=== PATIENT | female | born 1995 | race Caucasian/White ===

== ENCOUNTER 2017-11-27 12:22 | Inpatient (IN) ==
[2017-11-27] MEDS ORDERED: Oxytocin 30 Units/500ml Premix 30 UNITS/500 ML BAG IV.SIG PRN (13:24)
[2017-11-27] MEDS ORDERED: Naloxone Inj 0.4 MG/ML Vial IV.PUSH PRN (13:37)
[2017-11-27] MEDS ORDERED: fentaNYL Citrate Inj 100 MCG/2 ML Ampul IV.PUSH PRN ×2 (13:37)
[2017-11-27] MEDS ORDERED: Citric Acid/Sodium Citrate Liq 30 ML UDC PO SCH (13:45)
[2017-11-27] MEDS ORDERED: Sodium Chlor 0.9% Inj 500 ML IV.SIG PRN (14:00)
[2017-11-27] MEDS ORDERED: Oxytocin 30 Units/500ml Premix 30 UNITS/500 ML BAG IV.SIG ONE (14:00)
[2017-11-27] MEDS ORDERED: Penicillin G Potassium Inj 5,000,000 UNIT in Sodium Chloride 0.9% Inj 100 ML IV.SIG ONE (14:00)
[2017-11-27] MEDS ORDERED: Sod Chloride 0.9% Inj 1,000 ML IV.CONT PRN (14:00)
[2017-11-27 14:06] LABS: Baso # (Auto) 0.1 th/mm3 (0.0-0.2); Baso % (Auto) 0.5 % (0.0-2.0); Eos # (Auto) 0.1 th/mm3 (0.0-0.4); Eos % (Auto) 0.5 % (0.0-4.0); Hemoglobin 9.3 gm/dL (11.6-15.3); Lymph % (Auto) 17.8 % (9.0-44.0); Mean Corpuscular HGB Conc 32.1 % (32.0-36.0); Mean Corpuscular Hemoglobin 24.8 pg (27.0-34.0); Mean Corpuscular Volume 77.2 fL (80.0-100.0); Mean Platelet Volume 8.1 fL (7.0-11.0); Mono # (Auto) 0.9 th/mm3 (0.0-0.9); Mono % (Auto) 7.9 % (0.0-8.0); Neut # (Auto) 8.1 th/mm3 (1.8-7.7); Neut % (Auto) 73.3 % (16.0-70.0); Platelet Count 192 th/mm3 (150-450); Red Blood Count 3.76 mil/mm3 (4.00-5.30); Red Cell Distribution Width 16.1 % (11.6-17.2)
[2017-11-27 14:58] LABS: Bilirubin,Urine Negative (Negative); Clarity,Urine Clear (Clear); Color,Urine Yellow (Yellw/Straw); Glucose,Urine (UA) Negative (Negative); Leukocyte Esterase,Urine Trace (Negative); Nitrite,Urine Negative (Negative); Specific Gravity,Urine 1.006 (1.002-1.035); Squamous Epithelial Cell,Urine <1 /hpf (0-5)
[2017-11-27 15:13] LABS: Amphetamine Urine With Conf Neg (Neg); Benzodiazepine Urine With Conf Neg (Neg)
[2017-11-27] MEDS: Penicillin G Potassium Inj 2,500,000 UNIT in Sodium Chlor 0.9% Inj 100 ML IV.SIG SCH ×2 (17:56→22:02)
[2017-11-27] MEDS ORDERED: fentaNYL 2MCG-Bupiv 0.125% Epi 150 ML EPIDURAL ONE (18:46)
[2017-11-27] MEDS ORDERED: Bupivacaine PF 0.25% Inj 10 ML Vial ONE (19:00)
[2017-11-27] MEDS ORDERED: Lidocaine PF 1% Inj 10 ML Amp ONE (19:01)
[2017-11-27] MEDS ORDERED: Lidocaaine 1.5%/Epinephrine 1:200,000 PF Inj 5 ML Amp ONE (19:01)
[2017-11-27] MEDS ORDERED: Lidocaine 1% Inj 50 ML Vial ONE (19:02)
[2017-11-27] MEDS ORDERED: fentaNYL 2MCG-Bupiv 0.125% Epi 150 ML EPIDURAL PRN (20:05)
[2017-11-27] MEDS ORDERED: fentaNYL Citrate Inj 100 MCG/2 ML Ampul EPIDURAL ONE (20:05)
[2017-11-28] MEDS ORDERED: Lidocaine 1% Inj 50 ML Vial ONE (00:12)
[2017-11-28] MEDS ORDERED: Naloxone Inj 0.4 MG/ML Vial IV.PUSH PRN (01:36)
[2017-11-28] MEDS ORDERED: Bisacodyl 10 MG Supp RECTAL PRN (01:36)
[2017-11-28] MEDS ORDERED: Witch Hazel 50%/Glyderin 12.5% 40 Pad Jar RECTAL PRN (01:36)
[2017-11-28] MEDS ORDERED: Oxytocin 30 Units/500ml Premix 30 UNITS/500 ML BAG IV.CONT PRN (01:36)
[2017-11-28] MEDS ORDERED: Benzocaine 20% Top Spray 60 ML Can TOPICAL PRN (01:36)
[2017-11-28] MEDS ORDERED: Zolpidem Tartrate 5 MG Tablet PO PRN (01:36)
--- NOTE | 2017-11-28 01:42 | P.OBDELI ---
Patient Started Active Labor: Yes Active Labor Start Date: 11/27/17 Medical Induction of Labor: No Artificial Rupture of Membrane: No Anesthesia: Epidural Episiotomy: none Vaginal Delivery: Normal Presentation: Occiput posterior Nuchal Cord: None Delayed Cord Clamping (45 sec): Yes Placenta: Spontaneous delivery, Intact, 3 vessel cord Laceration: 1 deg Repair: Vicryl running Estimated blood loss (mL): 250 : Male Infant Male A Delivery Date: 11/28/17 Weight: 3.487 kg score (1 min): 8 score (5 min): 9 Additional Information: Nice delivery of Nitesh. Everything went very well
[2017-11-28] MEDS: Acetaminophen 325 MG Tablet PO PRN ×3 (07:42→22:51)
[2017-11-28] MEDS: Senna/Docusate Sodium 8.6/50 MG Tablet PO SCH ×2 (10:24→22:51)
--- NOTE | 2017-11-28 14:34 | P.HPOB ---
History of Present Illness Primary Care Physician: Tamiko Alcocer MD Chief Complaint: regular contractions, SROM History of Present Illness: Had SROM at 1150 am. Some contractions Weeks Gestation:: 38 Para: 2 : 4 - Inpatient Certification I certify that the inpatient services were ordered in accordance with Medicare regulations governing the order. This includes certification that hospital inpatient services are reasonable and necessary and in the case of services not specified as inpatient-only under 42 CFR 419.22(n), that they are appropriately provided as inpatient services in accordance to with the 2-midnight benchmark under 43 CFR 412.3(e) Estimated Total Length of Stay (Days): 3 Plans for Post Hospital Care: Home Review of Systems Comments: All negative except for spotting and SROM. PMFSH - History History Provided By: Family Member ( at bedside) - Medical History Medical History: Medical History (Last Updated 11/28/17 @ 14:27 by Luis Gonzalez MD) Hypoglycemia Patient denies significant medical history - Surgical History Surgical History: Surgical History (Last Updated 11/28/17 @ 14:27 by Luis Gonzalez MD) History of cholecystectomy (Acute) - Family History Family History: Family History (Last Updated 11/28/17 @ 14:28 by Luis Gonzalez MD) Other Hypertension - Social History I have reviewed the patient's Social History: Yes - Tobacco History Second Hand Smoke Exposure: No Tobacco Use In Past 30 Days: No Smoking Status: Never smoker - Alcohol History How Often Do You Have a Drink Containing Alcohol: Never - Substance Use History Substance History: No History of Abuse - Travel History History of Recent Travel: No Recent Travel in the [place] Within the Last 8 Weeks: No Recent Travel Out of the Country Within the Last 8 Weeks: No Medications and Allergies Active Medications: Active Medications Acetaminophen (Tylenol) 650 mg PO Q4H PRN PRN Reason: PAIN SCALE 1 TO 2 Last Admin: 11/28/17 07:42 Dose: 650 mg Al Hydroxide/Mg Hydroxide (Milk Of Magnesia Liq) 30 ml PO Q12H PRN PRN Reason: Mild Constipation Benzocaine (Americaine 20% Top [place]) 1 spray TOPICAL Q4H PRN PRN Reason: For Perineum Discomfort Bisacodyl (Dulcolax Supp) 10 mg RECTAL DAILY PRN PRN Reason: SEVERE CONSITIPATION Diphtheria/Pertussis/Tetanus Vacc (Boostrix Vaccine Inj) 0.5 ml IM .ONCE ONE Stop: 11/28/17 16:01 Oxytocin (Pitocin 30 Units/Ns 500 Ml Premix) 30 units in 500 mls @ 2 mls/hr IV.SIG TITRATE PRN; Protocol PRN Reason: For induction of labor Last Admin: 11/27/17 14:07 Dose: 2 milliunit/min, 2 mls/hr Oxytocin (Pitocin 30 Units/Ns 500 Ml Premix) 30 units in 500 mls @ 100 mls/hr IV.CONT UNSCH PRN PRN Reason: Heavy bleeding Ibuprofen (Motrin) 800 mg PO Q8H PRN PRN Reason: For Cramping Last Admin: 11/28/17 10:24 Dose: 800 mg Lactulose (Lactulose Liq) 30 ml PO DAILY PRN PRN Reason: SEVERE CONSITIPATION Measles/Mumps/Rubella Vaccine Live (M-M-R Ii Vaccine Inj) 0.5 ml SQ .ONCE ONE Stop: 11/28/17 16:01 Naloxone HCl (Narcan Inj) 0.1 mg IV.PUSH Q2M PRN PRN Reason: for opiate reversal Ondansetron HCl (Zofran Odt) 4 mg PO Q6H PRN PRN Reason: NAUSEA OR VOMITING Senna/Docusate Sodium (Lora-Colace) 1 tab PO BID YURY Last Admin: 11/28/17 10:24 Dose: 1 tab Sennosides (Senokot) 17.2 mg PO Q12H PRN PRN Reason: Moderate Constipation Sodium Chloride (Ns Flush) 2 ml IV.FLUSH BID YURY Sodium Chloride (Ns Flush) 2 ml IV.FLUSH PRN PRN PRN Reason: FLUSH AFTER USING IV ACCESS Witch Dali/Glycerin (Tucks Pads) 1 applicatio RECTAL QID PRN PRN Reason: HEMORRHOIDS Zolpidem Tartrate (Ambien) 5 mg PO HS PRN PRN Reason: SLEEP Allergies Allergy/AdvReac Type Severity Reaction Status Date / Time No Known Allergies Unknown Uncoded 12/30/16 08:48 Home Medications Medication Instructions Recorded Confirmed Type PNV [id number] fumarate-FA 1 tab PO DAILY 11/28/17 11/28/17 History [] ranitidine HCl [Zantac] 1 tab PRN 11/28/17 11/28/17 History Exam Vital signs: Vital Signs 11/27/17 14:30 11/27/17 15:00 11/27/17 15:16 Temperature Pulse Rate 72 82 71 Respiratory Rate Blood Pressure 99/64 L 118/76 112/59 L 11/27/17 15:21 11/27/17 15:41 11/27/17 15:45 Temperature 98.0 F Pulse Rate 69 73 Respiratory Rate 18 Blood Pressure 92/56 L 100/74 11/27/17 16:00 11/27/17 16:45 11/27/17 17:01 Temperature Pulse Rate 116 H 136 H 89 Respiratory Rate Blood Pressure 109/73 103/75 101/68 11/27/17 17:15 11/27/17 17:31 11/27/17 17:46 Temperature 98.0 F Pulse Rate 83 72 79 Respiratory Rate 18 Blood Pressure 125/62 118/67 113/76 11/27/17 18:00 11/27/17 18:15 11/27/17 18:30 Temperature Pulse Rate 76 77 89 Respiratory Rate Blood Pressure 104/69 117/68 107/85 11/27/17 18:45 11/27/17 19:00 11/27/17 19:07 Temperature Pulse Rate 94 H 84 105 H Respiratory Rate Blood Pressure 119/78 116/61 127/79 11/27/17 19:11 11/27/17 19:15 11/27/17 19:26 Temperature Pulse Rate 114 H 110 H 79 Respiratory Rate 18 Blood Pressure 128/79 127/66 130/65 11/27/17 19:28 11/27/17 19:29 11/27/17 19:40 Temperature 98.7 F Pulse Rate 81 72 Respiratory Rate 18 Blood Pressure 118/62 110/64 11/27/17 20:12 11/27/17 20:15 11/27/17 20:20 Temperature Pulse Rate 85 77 86 Respiratory Rate 18 Blood Pressure 100/62 93/41 L 97/63 L 11/27/17 20:25 11/27/17 20:30 11/27/17 20:36 Temperature Pulse Rate 83 87 89 Respiratory Rate 18 Blood Pressure 94/52 L 11/27/17 20:50 11/27/17 21:00 11/27/17 21:02 Temperature Pulse Rate 81 93 H Respiratory Rate 18 Blood Pressure 95/55 L 111/78 11/27/17 21:10 11/27/17 21:15 11/27/17 21:20 Temperature Pulse Rate 70 67 70 Respiratory Rate Blood Pressure 105/71 11/27/17 21:30 11/27/17 21:32 11/27/17 21:35 Temperature 97.6 F Pulse Rate 71 74 Respiratory Rate 18 Blood Pressure 102/66 11/27/17 21:40 11/27/17 22:01 11/27/17 22:13 Temperature Pulse Rate 71 70 79 Respiratory Rate 18 Blood Pressure 100/67 99/45 L 11/27/17 22:15 11/27/17 22:25 11/27/17 22:30 Temperature Pulse Rate 74 74 80 Respiratory Rate Blood Pressure 90/54 L 93/53 L 11/27/17 22:40 11/27/17 22:43 11/27/17 22:45 Temperature Pulse Rate 72 88 Respiratory Rate 18 Blood Pressure 95/54 L 11/27/17 23:05 11/27/17 23:10 11/27/17 23:30 Temperature Pulse Rate 73 78 136 H Respiratory Rate 18 Blood Pressure 100/59 L 119/92 H 11/27/17 23:35 11/27/17 23:40 11/27/17 23:45 Temperature Pulse Rate 119 H 157 H 115 H Respiratory Rate Blood Pressure 11/27/17 23:50 11/28/17 00:05 11/28/17 00:07 Temperature Pulse Rate 118 H 133 H Respiratory Rate 20 Blood Pressure 124/73 11/28/17 00:10 11/28/17 00:15 11/28/17 00:25 Temperature Pulse Rate 142 H 171 H 118 H Respiratory Rate Blood Pressure 11/28/17 01:30 11/28/17 01:32 11/28/17 01:50 Temperature 98.7 F Pulse Rate 104 H 147 H Respiratory Rate 18 18 Blood Pressure 98/65 L 94/72 L 11/28/17 02:00 11/28/17 02:14 11/28/17 02:15 Temperature Pulse Rate 87 86 Respiratory Rate 18 Blood Pressure 107/93 H 107/64 11/28/17 02:30 11/28/17 02:32 11/28/17 03:02 Temperature Pulse Rate 101 H 88 Respiratory Rate 18 Blood Pressure 111/60 106/61 11/28/17 03:04 11/28/17 03:50 11/28/17 07:55 Temperature 98.6 F 98.3 F Pulse Rate 94 H 60 Respiratory Rate 18 18 20 Blood Pressure 105/57 L 102/66 Intake & Output 11/27/17 11/28/17 11/28/17 18:59 06:59 18:59 Intake Total 100 / 100 1999 / 1999 Balance 100 / 100 1999 Weight 79.199 kg Intake: IV 100 / 100 1999 / 1999 LR 1000 mL Inj 1,000 ML @ 125 1000 / 1000 mls/hr IV.CONT .Q8H YURY Rx#: [id number] LR 1000 mL Inj 1,000 ML @ 3000 1000 / 1000 mls/hr IV.SIG UNSCH PRN Rx#: [id number] Pfizerpen-G Inj 2,500,000 UNIT 100 / 100 In NS Inj 100 ML @ 200 mls/hr IV.SIG Q4H YURY Rx#:[id number] - Constitutional mild distress - Routine HEENT Exam Head: Present: normocephalic, atraumatic - Routine Neck Exam Present: supple - Routine Respiratory Exam Present: CTA bilaterally - Routine Cardiovascular Exam Present: RRR, S1, S2 - Routine Abdominal Exam Present: soft - Routine Extremities Exam Comments: NO CCE Results - Labs CBC & Chem 7: 11/27/17 13:05 Labs: Laboratory Results - last 24 hr 11/27/17 11/27/17 11/27/17 13:05 13:05 13:05 Urine Color Yellow Urine Clarity Clear Urine pH 7.0 Ur Specific [place] 1.006 Urine Protein Negative Urine Glucose (UA) Negative Urine Ketones Negative Urine Occult Blood Moderate H Urine Nitrate Negative Urine Bilirubin Negative Urine Urobilinogen Less than 2 Ur Leukocyte Esterase Trace H Urine RBC 3 Urine WBC 3 Ur Squamous Epith Cells <1 Micro UA Comment Culture not ind Ur Microscopic Review Not Reportable Urine Culture Comments Culture not ind Urine Opiates Screen Neg Ur Barbiturates Screen Neg Ur Amphetamine Screen Neg U Benzodiazepines Scrn Neg Urine Cocaine Screen Neg U Cannabinoids Screen Neg Blood Type O Positive Group B Strep: Positive Caprini VTE Risk Assessment Caprini VTE Risk Assessment: No/Low Risk (score <= 1) Caprini Risk Assessment Model: Point Value = 1 Point Value = 2 Point Value = 3 Point Value = 5 Age 41-60 Minor surgery BMI > 25 kg/m2 Swollen legs Varicose veins or History of unexplained or recurrent spontaneous Oral contraceptives or hormone replacement Sepsis (< 1 month) Serious lung disease, including pneumonia (< 1 month) Abnormal pulmonary function Acute myocardial infarction Congestive heart failure (< 1 month) History of inflammatory bowel disease Medical patient at bed rest Age 61-74 Arthroscopic surgery Major open surgery (> 45 min) Laparoscopic surgery (> 45 min) Malignancy Confined to bed (> 72 hours) Immobilizing plaster cast Central venous access Age >= 75 History of VTE Family history of VTE Factor V Leiden Prothrombin [id number] Lupus anticoagulant Anticardiolipin antibodies Elevated serum homocysteine Heparin-induced thrombocytopenia Other congenital or acquired thrombophilia Stroke (< 1 month) Elective arthroplasty Hip, pelvis, or leg fracture Acute spinal cord injury (< 1 month) Prophylaxis Regimen: Total Risk Factor Score Risk Level Prophylaxis Regimen 0-1 Low Early ambulation 2 Moderate Order ONE of the following: *Sequential Compression Device (SCD) *Heparin 5000 units SQ BID 3-4 Higher Order ONE of the following medications: *Heparin 5000 units SQ TID *Enoxaparin/Lovenox 40 mg SQ daily (WT < 150 kg, CrCl > 30 mL/min) *Enoxaparin/Lovenox 30 mg SQ daily (WT < 150 kg, CrCl > 10-29 mL/min) *Enoxaparin/Lovenox 30 mg SQ BID (WT < 150 kg, CrCl > 30 mL/min) AND/OR *Sequential Compression Device (SCD) 5 or more Highest Order ONE of the following medications: *Heparin 5000 units SQ TID (Preferred with Epidurals) *Enoxaparin/Lovenox 40 mg SQ daily (WT < 150 kg, CrCl > 30 mL/min) *Enoxaparin/Lovenox 30 mg SQ daily (WT < 150 kg, CrCl > 10-29 mL/min) *Enoxaparin/Lovenox 30 mg SQ BID (WT < 150 kg, CrCl > 30 mL/min) AND *Sequential Compression Device (SCD) Assessment and Plan - Plan 1. IUP AT 36+ weels 2. SROM expect a 3. Positive GBS Will treat in labor. Notify PEDS. 4. Significant anemia and will start fe in the near future.
--- NOTE | 2017-11-28 14:37 | P.PNOB ---
Subjective Post day: 0 Interval history: Doing well Pain is controlled Baby is doing well Eating well Objective Vital Signs/I&O: Vital Signs 11/27/17 15:00 11/27/17 15:16 11/27/17 15:21 Temperature 98.0 F Pulse Rate 82 71 Respiratory Rate 18 Blood Pressure 118/76 112/59 L 11/27/17 15:41 11/27/17 15:45 11/27/17 16:00 Temperature Pulse Rate 69 73 116 H Respiratory Rate Blood Pressure 92/56 L 100/74 109/73 11/27/17 16:45 11/27/17 17:01 11/27/17 17:15 Temperature 98.0 F Pulse Rate 136 H 89 83 Respiratory Rate 18 Blood Pressure 103/75 101/68 125/62 11/27/17 17:31 11/27/17 17:46 11/27/17 18:00 Temperature Pulse Rate 72 79 76 Respiratory Rate Blood Pressure 118/67 113/76 104/69 11/27/17 18:15 11/27/17 18:30 11/27/17 18:45 Temperature Pulse Rate 77 89 94 H Respiratory Rate Blood Pressure 117/68 107/85 119/78 11/27/17 19:00 11/27/17 19:07 11/27/17 19:11 Temperature Pulse Rate 84 105 H 114 H Respiratory Rate 18 Blood Pressure 116/61 127/79 128/79 11/27/17 19:15 11/27/17 19:26 11/27/17 19:28 Temperature Pulse Rate 110 H 79 81 Respiratory Rate Blood Pressure 127/66 130/65 118/62 11/27/17 19:29 11/27/17 19:40 11/27/17 20:12 Temperature 98.7 F Pulse Rate 72 85 Respiratory Rate 18 18 Blood Pressure 110/64 100/62 11/27/17 20:15 11/27/17 20:20 11/27/17 20:25 Temperature Pulse Rate 77 86 83 Respiratory Rate Blood Pressure 93/41 L 97/63 L 11/27/17 20:30 11/27/17 20:36 11/27/17 20:50 Temperature Pulse Rate 87 89 81 Respiratory Rate 18 Blood Pressure 94/52 L 95/55 L 11/27/17 21:00 11/27/17 21:02 11/27/17 21:10 Temperature Pulse Rate 93 H 70 Respiratory Rate 18 Blood Pressure 111/78 11/27/17 21:15 11/27/17 21:20 11/27/17 21:30 Temperature Pulse Rate 67 70 71 Respiratory Rate Blood Pressure 105/71 102/66 11/27/17 21:32 11/27/17 21:35 11/27/17 21:40 Temperature 97.6 F Pulse Rate 74 71 Respiratory Rate 18 Blood Pressure 100/67 11/27/17 22:01 11/27/17 22:13 11/27/17 22:15 Temperature Pulse Rate 70 79 74 Respiratory Rate 18 Blood Pressure 99/45 L 90/54 L 11/27/17 22:25 11/27/17 22:30 11/27/17 22:40 Temperature Pulse Rate 74 80 72 Respiratory Rate Blood Pressure 93/53 L 11/27/17 22:43 11/27/17 22:45 11/27/17 23:05 Temperature Pulse Rate 88 73 Respiratory Rate 18 18 Blood Pressure 95/54 L 100/59 L 11/27/17 23:10 11/27/17 23:30 11/27/17 23:35 Temperature Pulse Rate 78 136 H 119 H Respiratory Rate Blood Pressure 119/92 H 11/27/17 23:40 11/27/17 23:45 11/27/17 23:50 Temperature Pulse Rate 157 H 115 H 118 H Respiratory Rate Blood Pressure 11/28/17 00:05 11/28/17 00:07 11/28/17 00:10 Temperature Pulse Rate 133 H 142 H Respiratory Rate 20 Blood Pressure 124/73 11/28/17 00:15 11/28/17 00:25 11/28/17 01:30 Temperature Pulse Rate 171 H 118 H 104 H Respiratory Rate Blood Pressure 98/65 L 11/28/17 01:32 11/28/17 01:50 11/28/17 02:00 Temperature 98.7 F Pulse Rate 147 H 87 Respiratory Rate 18 18 Blood Pressure 94/72 L 107/93 H 11/28/17 02:14 11/28/17 02:15 11/28/17 02:30 Temperature Pulse Rate 86 101 H Respiratory Rate 18 Blood Pressure 107/64 111/60 11/28/17 02:32 11/28/17 03:02 11/28/17 03:04 Temperature Pulse Rate 88 Respiratory Rate 18 18 Blood Pressure 106/61 11/28/17 03:50 11/28/17 07:55 Temperature 98.6 F 98.3 F Pulse Rate 94 H 60 Respiratory Rate 18 20 Blood Pressure 105/57 L 102/66 Intake & Output 11/27/17 11/28/17 11/28/17 18:59 06:59 18:59 Intake Total 100 / 100 1999 Balance 100 / 100 1999 Weight 79.199 kg Intake: IV 100 / 100 1999 / 1999 LR 1000 mL Inj 1,000 ML @ 125 1000 / 1000 mls/hr IV.CONT .Q8H YURY Rx#: [id number] LR 1000 mL Inj 1,000 ML @ 3000 1000 / 1000 mls/hr IV.SIG UNSCH PRN Rx#: [id number] Pfizerpen-G Inj 2,500,000 UNIT 100 / 100 In NS Inj 100 ML @ 200 mls/hr IV.SIG Q4H YURY Rx#:[id number] Result Diagrams: 11/27/17 13:05 Objective Remarks: GENERAL: Well-nourished, well-developed patient. CARDIOVASCULAR: Regular rate and rhythm without murmurs, gallops, or rubs. RESPIRATORY: Breath sounds equal bilaterally. No accessory muscle use. ABDOMEN/GI: Abdomen soft, non-tender. Fundus: Firm, non-tender at umbilicus. GENITOURINARY: Light to moderate bleeding. EXTREMITIES: No cyanosis or edema, non-tender, without signs of DVT. Medications and IVs: Active Medications Acetaminophen (Tylenol) 650 mg PO Q4H PRN PRN Reason: PAIN SCALE 1 TO 2 Last Admin: 11/28/17 07:42 Dose: 650 mg Al Hydroxide/Mg Hydroxide (Milk Of [place] Liq) 30 ml PO Q12H PRN PRN Reason: Mild Constipation Benzocaine (Americaine 20% Top [place]) 1 spray TOPICAL Q4H PRN PRN Reason: For Perineum Discomfort Bisacodyl (Dulcolax Supp) 10 mg RECTAL DAILY PRN PRN Reason: SEVERE CONSITIPATION Diphtheria/Pertussis/Tetanus Vacc (Boostrix Vaccine Inj) 0.5 ml IM .ONCE ONE Stop: 11/28/17 16:01 Oxytocin (Pitocin 30 Units/Ns 500 Ml Premix) 30 units in 500 mls @ 2 mls/hr IV.SIG TITRATE PRN; Protocol PRN Reason: For induction of labor Last Admin: 11/27/17 14:07 Dose: 2 milliunit/min, 2 mls/hr Oxytocin (Pitocin 30 Units/Ns 500 Ml Premix) 30 units in 500 mls @ 100 mls/hr IV.CONT UNSCH PRN PRN Reason: Heavy bleeding Ibuprofen (Motrin) 800 mg PO Q8H PRN PRN Reason: For Cramping Last Admin: 11/28/17 10:24 Dose: 800 mg Lactulose (Lactulose Liq) 30 ml PO DAILY PRN PRN Reason: SEVERE CONSITIPATION Measles/Mumps/Rubella Vaccine Live (M-M-R Ii Vaccine Inj) 0.5 ml SQ .ONCE ONE Stop: 11/28/17 16:01 Naloxone HCl (Narcan Inj) 0.1 mg IV.PUSH Q2M PRN PRN Reason: for opiate reversal Ondansetron HCl (Zofran Odt) 4 mg PO Q6H PRN PRN Reason: NAUSEA OR VOMITING Senna/Docusate Sodium (Lora-Colace) 1 tab PO BID YURY Last Admin: 11/28/17 10:24 Dose: 1 tab Sennosides (Senokot) 17.2 mg PO Q12H PRN PRN Reason: Moderate Constipation Sodium Chloride (Ns Flush) 2 ml IV.FLUSH BID YURY Sodium Chloride (Ns Flush) 2 ml IV.FLUSH PRN PRN PRN Reason: FLUSH AFTER USING IV ACCESS Witch Dali/Glycerin (Tucks Pads) 1 applicatio RECTAL QID PRN PRN Reason: HEMORRHOIDS Zolpidem Tartrate (Ambien) 5 mg PO HS PRN PRN Reason: SLEEP Assessment and Plan - Plan PPD #1 Doing well Anemia will start fe soon. Routine care.
[2017-11-28] MEDS ORDERED: Diphtheria/Tetanus/Pertussis Vaccine Inj 0.5 ML Syringe IM ONE (16:00)
[2017-11-28] MEDS ORDERED: Measles/Mumps/Rubella Vaccine Inj 0.5 ML Vial SQ ONE (16:00)
[2017-11-28 20:35] VITALS: RESP 18
[2017-11-29] MEDS: Acetaminophen 325 MG Tablet PO PRN ×3 (05:10→22:18)
[2017-11-29 08:43] VITALS: O2SAT 99
[2017-11-29] MEDS: Senna/Docusate Sodium 8.6/50 MG Tablet PO SCH ×2 (10:02→22:18)
--- NOTE | 2017-11-29 17:07 | P.PNOB ---
Subjective Post day: 1 Interval history: Doing well Pain is well controlled Baby is great Bleeding is good Objective Vital Signs/I&O: Vital Signs 11/28/17 20:30 11/29/17 07:15 Temperature 97.9 F 96.0 F L Pulse Rate 76 68 Respiratory Rate 18 18 Blood Pressure 109/65 95/56 L Pulse Oximetry 99 Result Diagrams: 11/27/17 13:05 Objective Remarks: GENERAL: Well-nourished, well-developed patient. CARDIOVASCULAR: Regular rate and rhythm without murmurs, gallops, or rubs. RESPIRATORY: Breath sounds equal bilaterally. No accessory muscle use. ABDOMEN/GI: Abdomen soft, non-tender. Fundus: Firm, non-tender at umbilicus. GENITOURINARY: Light to moderate bleeding. EXTREMITIES: No cyanosis or edema, non-tender, without signs of DVT. Medications and IVs: Active Medications Acetaminophen (Tylenol) 650 mg PO Q4H PRN PRN Reason: PAIN SCALE 1 TO 2 Last Admin: 11/29/17 13:43 Dose: 650 mg Al Hydroxide/Mg Hydroxide (Milk Of Magnesia Liq) 30 ml PO Q12H PRN PRN Reason: Mild Constipation Benzocaine (Americaine 20% Top [place]) 1 spray TOPICAL Q4H PRN PRN Reason: For Perineum Discomfort Bisacodyl (Dulcolax Supp) 10 mg RECTAL DAILY PRN PRN Reason: SEVERE CONSITIPATION Oxytocin (Pitocin 30 Units/Ns 500 Ml Premix) 30 units in 500 mls @ 2 mls/hr IV.SIG TITRATE PRN; Protocol PRN Reason: For induction of labor Last Admin: 11/27/17 14:07 Dose: 2 milliunit/min, 2 mls/hr Oxytocin (Pitocin 30 Units/Ns 500 Ml Premix) 30 units in 500 mls @ 100 mls/hr IV.CONT UNSCH PRN PRN Reason: Heavy bleeding Ibuprofen (Motrin) 800 mg PO Q8H PRN PRN Reason: For Cramping Last Admin: 11/29/17 13:42 Dose: 800 mg Lactulose (Lactulose Liq) 30 ml PO DAILY PRN PRN Reason: SEVERE CONSITIPATION Naloxone HCl (Narcan Inj) 0.1 mg IV.PUSH Q2M PRN PRN Reason: for opiate reversal Ondansetron HCl (Zofran Odt) 4 mg PO Q6H PRN PRN Reason: NAUSEA OR VOMITING Senna/Docusate Sodium (Lora-Colace) 1 tab PO BID [facility] Last Admin: 11/29/17 10:02 Dose: 1 tab Sennosides (Senokot) 17.2 mg PO Q12H PRN PRN Reason: Moderate Constipation Sodium Chloride (Ns Flush) 2 ml IV.FLUSH BID [facility] Last Admin: 11/28/17 22:54 Dose: Not Given Sodium Chloride (Ns Flush) 2 ml IV.FLUSH PRN PRN PRN Reason: FLUSH AFTER USING IV ACCESS Witch Dali/Glycerin (Tucks Pads) 1 applicatio RECTAL QID PRN PRN Reason: HEMORRHOIDS Zolpidem Tartrate (Ambien) 5 mg PO HS PRN PRN Reason: SLEEP Assessment and Plan - Plan PPD #1 Doing well Anemia will start fe soon. Routine care. Ready for discharge home tomorrow Baby needs circ.
--- NOTE | 2017-11-30 07:56 | P.PNOB ---
Subjective Post day: 2 Interval history: no complaints, doing well, meeting all criteria Objective Vital Signs/I&O: Vital Signs 11/29/17 15:45 11/29/17 19:30 Temperature 98.4 F 98.7 F Pulse Rate 80 66 Respiratory Rate 18 18 Blood Pressure 125/76 89/64 L Result Diagrams: 11/27/17 13:05 Objective Remarks: GENERAL: Well-nourished, well-developed patient. CARDIOVASCULAR: Regular rate and rhythm without murmurs, gallops, or rubs. RESPIRATORY: Breath sounds equal bilaterally. No accessory muscle use. ABDOMEN/GI: Abdomen soft, non-tender. Fundus: Firm, non-tender at umbilicus. GENITOURINARY: Light bleeding. EXTREMITIES: No cyanosis or edema, non-tender, without signs of DVT. Medications and IVs: Active Medications Acetaminophen (Tylenol) 650 mg PO Q4H PRN PRN Reason: PAIN SCALE 1 TO 2 Last Admin: 11/29/17 22:18 Dose: 650 mg Al Hydroxide/Mg Hydroxide (Milk Of Magnesia Liq) 30 ml PO Q12H PRN PRN Reason: Mild Constipation Benzocaine (Americaine 20% Top [place]) 1 spray TOPICAL Q4H PRN PRN Reason: For Perineum Discomfort Bisacodyl (Dulcolax Supp) 10 mg RECTAL DAILY PRN PRN Reason: SEVERE CONSITIPATION Oxytocin (Pitocin 30 Units/Ns 500 Ml Premix) 30 units in 500 mls @ 2 mls/hr IV.SIG TITRATE PRN; Protocol PRN Reason: For induction of labor Last Admin: 11/27/17 14:07 Dose: 2 milliunit/min, 2 mls/hr Oxytocin (Pitocin 30 Units/Ns 500 Ml Premix) 30 units in 500 mls @ 100 mls/hr IV.CONT UNSCH PRN PRN Reason: Heavy bleeding Ibuprofen (Motrin) 800 mg PO Q8H PRN PRN Reason: For Cramping Last Admin: 11/29/17 22:17 Dose: 800 mg Lactulose (Lactulose Liq) 30 ml PO DAILY PRN PRN Reason: SEVERE CONSITIPATION Naloxone HCl (Narcan Inj) 0.1 mg IV.PUSH Q2M PRN PRN Reason: for opiate reversal Ondansetron HCl (Zofran Odt) 4 mg PO Q6H PRN PRN Reason: NAUSEA OR VOMITING Vit/Calcium/Iron/Folic Ac ([place]natal Plus 3) 1 tab PO DAILY [facility] Senna/Docusate Sodium (Lora-Colace) 1 tab PO BID [facility] Last Admin: 11/29/17 22:18 Dose: 1 tab Sennosides (Senokot) 17.2 mg PO Q12H PRN PRN Reason: Moderate Constipation Sodium Chloride (Ns Flush) 2 ml IV.FLUSH BID [facility] Last Admin: 11/29/17 19:04 Dose: Not Given Sodium Chloride (Ns Flush) 2 ml IV.FLUSH PRN PRN PRN Reason: FLUSH AFTER USING IV ACCESS Witch Dali/Glycerin (Tucks Pads) 1 applicatio RECTAL QID PRN PRN Reason: HEMORRHOIDS Zolpidem Tartrate (Ambien) 5 mg PO HS PRN PRN Reason: SLEEP Assessment and Plan - Plan PPD #2 Doing well meeting all criteria, d/c to home today Discharge Planning: today
[2017-11-30] MEDS: Senna/Docusate Sodium 8.6/50 MG Tablet PO SCH (08:21)
[2017-11-30] MEDS: Acetaminophen 325 MG Tablet PO PRN (08:21)
[2017-11-30] MEDS ORDERED: Prenatal Vit/Ca/Iron/Folic Acid Tablet PO SCH (09:00)
[2017-11-30 09:34] VITALS: BP 108/62; PULSE 67; TEMP 98.1
== END 2017-11-30 12:54 | disposition home or self-care (01) ==
LOC: H2E 12:22 → H1EA 11-28 04:13
PROVIDERS: ADMIT Obstetrics & Gynecology; ATTEND Obstetrics & Gynecology